=== PATIENT | male | born 1965 | race Caucasian/White ===

== ENCOUNTER 2019-11-20 09:02 | Emergency (ER) | payer MEDICARE ==
[~2019-11-20] VITALS: Ht 180.3 cm; Wt 90.6 kg
[~2019-11-20 09:02] MED LIST: CLIN-90 PO
[2019-11-20 09:40] LABS: BASOPHILS # (AUTO) 0.1 X10'3 (0-0.2); BASOPHILS % (AUTO) 0.5 % (0-1); EOSINOPHILS # (AUTO) 0.3 X10'3 (0-0.9); EOSINOPHILS % (AUTO) 2.8 % (0-6); HEMATOCRIT 48.4 % (42.0-52.0); HEMOGLOBIN 16.3 g/dl (14.0-17.9); LYMPHOCYTES # (AUTO) 3.1 X10'3 (1.1-4.8); LYMPHOCYTES % (AUTO) 28.5 % (21-51); MEAN CORPUSCULAR HEMOGLOBIN 29.5 PG (27.0-31.0); MEAN CORPUSCULAR HGB CONC 33.7 g/dL (33.0-36.5); MEAN CORPUSCULAR VOLUME 87.4 FL (78-98); MEAN PLATELET VOLUME 8.4 FL (7.4-10.4); MONOCYTES # (AUTO) 1.1 X10'3 (0-0.9); MONOCYTES % (AUTO) 10.4 % (2-12); NEUTROPHILS # (AUTO) 6.2 X10'3 (1.8-7.7); NEUTROPHILS % (AUTO) 57.8 % (42-75); PLATELET COUNT 351 X10'3 (140-440); RED BLOOD COUNT 5.53 X10'6 (4.70-6.10); RED CELL DISTRIBUTION WIDTH 13.8 % (11.5-14.5); WHITE BLOOD COUNT 10.7 X10'3 (4.5-11.0)
[2019-11-20 09:47] LABS: ALANINE AMINOTRANSFERASE 23 U/L (12-78); ALBUMIN 3.9 G/DL (3.4-5.0); ALKALINE PHOSPHATASE 92 IU/L (46-116); ANION GAP 9 (8-16); ASPARTATE AMINO TRANSFERASE 20 U/L (10-37); BILIRUBIN,TOTAL 0.4 MG/DL (0.1-1.0); BLOOD UREA NITROGEN 13 MG/DL (7-18); BUN/CREATININE RATIO 15.3 (5.4-32.0); CALCIUM 8.9 MG/DL (8.5-10.1); CHLORIDE 105 MMOL/L (99-107); CREATININE 0.85 MG/DL (0.60-1.10); GLUCOSE 92 MG/DL (70-104); SODIUM 140 MMOL/L (135-145); TOTAL PROTEIN 7.9 G/DL (6.4-8.2); eGFR > 90 ML/MIN
[2019-11-20] MEDS ORDERED: BACDS PO (10:30)
[2019-11-20 10:36] VITALS: BP 113/66
[2019-11-20 10:40] LABS: URINE AMPHETAMINE SCREEN NEGATIVE (Neg); URINE BARBITUATE SCREEN NEGATIVE (Neg); URINE BENZODIAZEPINES SCREEN NEGATIVE (Neg); URINE CANNABINOID SCREEN NEGATIVE (Neg); URINE COCAINE SCREEN NEGATIVE (Neg); URINE METHADONE SCREEN NEGATIVE (Neg); URINE OPIATE SCREEN NEGATIVE (Neg); URINE PHENCYCLIDINE SCREEN NEGATIVE (Neg)
[2019-11-20 10:41] LABS: CLARITY,URINE CLEAR (Clear); COLOR,URINE YELLOW (Yellow); GLUCOSE, URINE NEGATIVE (Neg); KETONES,URINE NEGATIVE (Neg); LEUKOCYTE ESTERASE ,URINE NEGATIVE (Neg); NITRITES, URINE NEGATIVE (Neg); OCCULT BLOOD,URINE NEGATIVE (Neg); PH,URINE 6.5 (4.8-8.0); PROTEIN,URINE NEGATIVE (Neg); UROBILINOGEN,URINE 0.2 E.U/dL (0.2-1.0)
[2019-11-20 10:44] LABS: UA COLLECTION TYPE CLN CATCH MIDSTREAM
== END 2019-11-20 10:41 | disposition home or self-care (01) ==
LOC: ER 09:03
DX: N49.2 Inflammatory disorders of scrotum (principal); Z56.0 Unemployment, unspecified; Z86.14 Personal history of Methicillin resistant Staphylococcus aureus infection
CPT/HCPCS: 36415; 76870; 80053; 80305; 81003; 85025; 99284

== ENCOUNTER 2024-09-06 14:31 | Emergency (ER) | payer BC, MEDICARE ==
[~2024-09-06] VITALS: Ht 180.3 cm; Wt 84.1 kg
[~2024-09-06 14:31] MED LIST changes: -CLIN-90 PO; +CLIN-97 PO
[2024-09-06 14:37] VITALS: BP 128/92; PULSE 114; TEMP 97.6; O2SAT 98
[2024-09-06] MEDS: LIDOcaine 1% 30ml preserv. free vial SQ STA (16:15)
[2024-09-06] MEDS: CefTRIAXone 1000mg IM Kit (w/lidocaine diluent) IM STA (16:21)
[2024-09-06] MEDS ORDERED: DOXY100C43 PO (18:06)
[2024-09-06] MEDS ORDERED: IBUP-1984 PO (18:06)
[2024-09-06 18:30] VITALS: RESP 18
== END 2024-09-06 18:32 | disposition home or self-care (01) ==
LOC: ER 14:31
DX: S50.362A Insect bite (nonvenomous) of left elbow, initial encounter (principal); Z56.0 Unemployment, unspecified; Z79.1 Long term (current) use of non-steroidal anti-inflammatories (NSAID); W57.XXXA Bitten or stung by nonvenomous insect and other nonvenomous arthropods, initial encounter; Y93.89 Activity, other specified; Y92.89 Other specified places as the place of occurrence of the external cause; Y99.8 Other external cause status
CPT/HCPCS: 10060; 96372; 99283; A6266; J0696; A6449

== ENCOUNTER 2024-09-08 16:16 | Emergency (ER) | payer BC ==
[~2024-09-08] VITALS: Ht 180.3 cm; Wt 84.1 kg
[~2024-09-08 16:16] MED LIST changes: +DOXY100C43 PO; +IBUP-1984 PO
[2024-09-08 16:27] VITALS: BP 126/77; PULSE 102; RESP 14; TEMP 98.2; O2SAT 98
[2024-09-08] MEDS: bacitracin 15gm ointment TP ONE (18:01)
[2024-09-08] MEDS: TETanus/Pertussis (Acell)/Diphther VAC/PF (Tdap-Adult) 0.5ml syringe IMVAC ONE (18:02)
== END 2024-09-08 18:13 | disposition home or self-care (01) ==
LOC: ER 16:16
DX: L02.414 Cutaneous abscess of left upper limb (principal); Z79.1 Long term (current) use of non-steroidal anti-inflammatories (NSAID); Z56.0 Unemployment, unspecified
CPT/HCPCS: 90471; 90715; 99283; A6258

== ENCOUNTER 2025-01-09 09:26 | Day surgery (SDC) | payer BC ==
[2025-01-05 09:03] LABS: BASOPHILS # (AUTO) 0.1 X10'3 (0-0.2); BASOPHILS % (AUTO) 1.1 % (0-1); EOSINOPHILS # (AUTO) 0.3 X10'3 (0-0.9); EOSINOPHILS % (AUTO) 4.1 % (0-6); HEMATOCRIT 50.5 % (42.0-52.0); HEMOGLOBIN 16.8 g/dl (14.0-17.9); LYMPHOCYTES # (AUTO) 2.1 X10'3 (1.1-4.8); LYMPHOCYTES % (AUTO) 28.2 % (21-51); MEAN CORPUSCULAR HEMOGLOBIN 29.8 PG (27.0-31.0); MEAN CORPUSCULAR HGB CONC 33.2 g/dL (33.0-36.5); MEAN CORPUSCULAR VOLUME 89.5 FL (78-98); MEAN PLATELET VOLUME 8.2 FL (7.4-10.4); MONOCYTES # (AUTO) 0.6 X10'3 (0-0.9); MONOCYTES % (AUTO) 8.7 % (2-12); NEUTROPHILS # (AUTO) 4.2 X10'3 (1.8-7.7); NEUTROPHILS % (AUTO) 57.9 % (42-75); PLATELET COUNT 311 X10'3 (140-440); RED BLOOD COUNT 5.64 X10'6 (4.70-6.10); RED CELL DISTRIBUTION WIDTH 13.9 % (11.5-14.5); WHITE BLOOD COUNT 7.3 X10'3 (4.5-11.0)
[2025-01-05 09:19] LABS: ALBUMIN 3.4 G/DL (3.4-5.0); ANION GAP 8 (8-16); APTT 26 SECONDS (22-32); BLOOD UREA NITROGEN 17 MG/DL (7-18); BUN/CREATININE RATIO 18.5 (10.0-20.0); CALCIUM 8.7 MG/DL (8.5-10.1); CHLORIDE 105 MMOL/L (99-107); CHOL/HDL RATIO 4.6 (0.00-4.99); CHOLESTEROL 208 MG/DL (0-200); CREATININE 0.92 MG/DL (0.60-1.10); GLUCOSE 157 MG/DL (70-104); HDL CHOLESTEROL 45 MG/DL (35-60); LDL CHOLESTEROL 131 MG/DL (50-100); PROTHROMBIN TIME 10.1 SECONDS (9.0-12.0); SODIUM 140 MMOL/L (135-145); TOTAL CARBON DIOXIDE 26.9 MMOL/L (24-32); TRIGLYCERIDES 262 MG/DL (20-135); eGFR 84 ML/MIN
[2025-01-05 09:20] LABS: POTASSIUM 4.4 MMOL/L (3.5-5.1)
[2025-01-09] VITALS (8 sets, daily range): BP systolic 110–133; BP diastolic 68–92; PULSE 85–99; RESP 15–20; TEMP 98.4; O2SAT 92–94
[~2025-01-09] VITALS: Ht 180.3 cm; Wt 90.4 kg
[~2025-01-09 09:26] MED LIST changes: -DOXY100C43 PO; -IBUP-1984 PO
[2025-01-09] MEDS ORDERED: ALBU2.5V10 (09:46)
[2025-01-09] MEDS ORDERED: EMTR1TAB18 PO (09:46)
[2025-01-09] MEDS: diphenhydrAMINE 25mg capsule PO PRN (10:46)
[2025-01-09] MEDS: LORazepam 0.5 MG tablet PO PRN (10:46)
[2025-01-09] MEDS: normal saline 1,000 ML IV SCH (10:47)
[2025-01-09] MEDS ORDERED: midazolam 1 mg/ML 2ml injection ONE (11:42)
[2025-01-09] MEDS ORDERED: LIDOcaine 1% (10mg/ml) 2ml vial ONE (11:42)
[2025-01-09] MEDS ORDERED: fentaNYL/PF 50MCG/1 ML 2ML syringe ONE (11:43)
[2025-01-09] MEDS ORDERED: iohexol 350MG/ML 100ml bottle IV ONE (11:43)
[2025-01-09 14:17] LABS: ISTAT HGB MIX 15.3 g/dl (14.0-17.9); ISTAT Hct MIX 45 %PCV (42-52); ISTAT O2 SATURATION MIX VENOUS 58 % (60-80); ISTAT SOURCE VEN
== END 2025-01-09 15:30 | disposition home or self-care (01) ==
LOC: SSTAY O 09:26
PROVIDERS: ATTEND Student in an Organized Health Care Education/Training Program
DX: I27.20 Pulmonary hypertension, unspecified (principal); E78.5 Hyperlipidemia, unspecified; J44.9 Chronic obstructive pulmonary disease, unspecified; B20 Human immunodeficiency virus [HIV] disease; F31.9 Bipolar disorder, unspecified; F41.8 Other specified anxiety disorders; I27.81 Cor pulmonale (chronic); Z79.899 Other long term (current) drug therapy; Z98.890 Other specified postprocedural states
CPT/HCPCS: 36415; 80048; 80061; 82803; 85014; 85025; 85610; 85730; 93005; 93451; 99152; J1644; J2003; J2250; J3010; J7030; Q0163; Q9967; A4615; A6258; C1751; C1894

== ENCOUNTER 2025-02-24 14:52 | Emergency (ER) | payer BC ==
[~2025-02-24] VITALS: Ht 180.3 cm; Wt 87.8 kg
[~2025-02-24 14:52] MED LIST changes: +ALBU2.5V10; -CLIN-97 PO; +EMTR1TAB18 PO
[2025-02-24] MEDS ORDERED: FURO20TA4 PO (15:06)
--- NOTE | 2025-02-24 15:35 | RADIOLOGY REPORT ---
Exam: DI ABDOMEN,SINGLE VIEW(KUB) History: constipation Comparison: None Technique: A portable supine AP radiograph of the abdomen is obtained. Findings: Nonobstructive bowel gas pattern noted. There is no definite evidence for pneumoperitoneum. No abnor mal calcifications noted. Impression: 1. Nonspecific gas pattern. Mild fecal stasis
[2025-02-24 17:30] LABS: BASOPHILS % (AUTO) 0.4 % (0-1); EOSINOPHILS # (AUTO) 0.2 X10'3 (0-0.9); EOSINOPHILS % (AUTO) 2.3 % (0-6); HEMATOCRIT 49.2 % (42.0-52.0); HEMOGLOBIN 16.6 g/dl (14.0-17.9); LYMPHOCYTES # (AUTO) 2.1 X10'3 (1.1-4.8); LYMPHOCYTES % (AUTO) 24.7 % (21-51); MEAN CORPUSCULAR HEMOGLOBIN 29.3 PG (27.0-31.0); MEAN CORPUSCULAR HGB CONC 33.6 g/dL (33.0-36.5); MEAN CORPUSCULAR VOLUME 87.2 FL (78-98); MEAN PLATELET VOLUME 8.1 FL (7.4-10.4); MONOCYTES # (AUTO) 0.9 X10'3 (0-0.9); MONOCYTES % (AUTO) 10.7 % (2-12); NEUTROPHILS # (AUTO) 5.3 X10'3 (1.8-7.7); NEUTROPHILS % (AUTO) 61.9 % (42-75); PLATELET COUNT 359 X10'3 (140-440); RED BLOOD COUNT 5.65 X10'6 (4.70-6.10); RED CELL DISTRIBUTION WIDTH 13.8 % (11.5-14.5); WHITE BLOOD COUNT 8.5 X10'3 (4.5-11.0)
[2025-02-24 17:45] LABS: ALANINE AMINOTRANSFERASE 41 U/L (12-78); ALBUMIN 3.6 G/DL (3.4-5.0); ALBUMIN/GLOBULIN RATIO 0.8 (1.1-1.5); ALKALINE PHOSPHATASE 124 IU/L (46-116); ANION GAP 6 (8-16); ASPARTATE AMINO TRANSFERASE 23 U/L (10-37); BILIRUBIN,TOTAL 0.3 MG/DL (0.1-1.0); BLOOD UREA NITROGEN 15 MG/DL (7-18); BUN/CREATININE RATIO 14.3 (10.0-20.0); CALCIUM 8.9 MG/DL (8.5-10.1); CHLORIDE 104 MMOL/L (99-107); CREATININE 1.05 MG/DL (0.60-1.10); GLUCOSE 120 MG/DL (70-104); LIPASE 25 U/L (16-77); SODIUM 141 MMOL/L (135-145); TOTAL CARBON DIOXIDE 31.5 MMOL/L (24-32); TOTAL PROTEIN 8.2 G/DL (6.4-8.2); eCRCL 81 ML/MIN; eGFR 72 ML/MIN
[2025-02-24] MEDS ORDERED: DOCU-148 PO (20:10)
[2025-02-24] MEDS ORDERED: SODI354S PO (20:10)
--- NOTE | 2025-02-24 20:12 | Physician Documentation ---
History of Present Illness ~ Chief Complaint: Urinary Retention Stated Complaint: CP, SOB W/ HX Time Seen by MD: 19:02 Primary Medical Doctor: May Jensen Mode of Arrival: Ambulatory HPI 59-year-old male reports a chief complaint of a constipation. Patient states he has been on Lasix due to pulmonary hypertension and states that he is placed on Lasix. Patient states that he has a had a bowel movement in a week. Denies rectal pain. Patient also states he has been difficulty voiding but he is able to void. Denies nausea vomiting diarrhea. No other complaints at this time Medication Reconciliation Allergies: Coded Allergies: No Known Allergies (Unverified , 09/06/24) Scheduled Albuterol Sulfate (Albuterol Sulfate), 1 q4hrs , (Reported) Emtricitabine/Tenofov Alafenam (Descovy 200-25 mg Tablet), 1 TAB PO DAILY, (Reported) Furosemide (Furosemide), 1 TAB PO BID, (Reported) Past Medical History Past Medical History: MRSA Abscess Past Surgical History: noncontributory Drug Use: none Lives with: Family Lives In: Home Occupation: unemployed Physical Exam Vital Signs: Temperature: 96.4, Source: Temporal, Heart Rate: 109, Respiratory Rate: 16, BP: 131/84, Pulse Oximetry: 92, Weight: 87.800 Oxygen Flow Rate: 0 Physical Exam General: Well developed, well nourished, no distress. HEENT: Atraumatic, normal conjunctiva, moist mucous membranes. Neck: Full range of motion, supple. Respiratory: Lungs clear, no respiratory distress. Chest: No accessory muscle use, nontender. Cardiovascular: Regular rate and rhythm. Gastrointestinal: Soft, nontender, nondistended. Bowel sounds present. Extremities: Normal range of motion, nontender, normal capillary refill, no deformity. Back: No midline tenderness, no CVA tenderness. Neurologic: Oriented x4. Distal gross motor and sensory intact all four extremities. Moves all 4 extremities spontaneously. Psychiatric: Normal mood and affect. Skin: Normal color, warm and dry. No edema, no ecchymosis Progress Results/Orders Results/Orders Orders - EDWIN ASTORGA Abdomen,Single View(Kub) (02/24/25 15:06) Completed Orders - EDWIN ASTORGA Abdomen,Single View(Kub) (02/24/25 15:06) Vital Signs 02/24/25 02/24/25 14:58 19:54 Temp 96.4 Pulse 109 Resp 16 16 B/P (MAP) 131/84 Pulse Ox 92 O2 Flow Rate 0 Laboratory Tests Test 02/24/25 17:14 White Blood Count 8.5 Red Blood Count 5.65 Hemoglobin 16.6 Hematocrit 49.2 Mean Corpuscular Volume 87.2 Mean Corpuscular Hemoglobin 29.3 Mean Corpuscular Hemoglobin Concent 33.6 Red Cell Distribution Width 13.8 Platelet Count 359 Mean Platelet Volume 8.1 Neutrophils (%) (Auto) 61.9 Lymphocytes (%) (Auto) 24.7 Monocytes (%) (Auto) 10.7 Eosinophils (%) (Auto) 2.3 Basophils (%) (Auto) 0.4 Neutrophils # (Auto) 5.3 Lymphocytes # (Auto) 2.1 Monocytes # (Auto) 0.9 Eosinophils # (Auto) 0.2 Basophils # (Auto) 0.0 CBC Comment Sodium Level 141 Potassium Level 4.0 Chloride Level 104 Carbon Dioxide Level 31.5 Anion Gap 6 L Blood Urea Nitrogen 15 Creatinine 1.05 Estimated GFR/1.73 m2 72 BUN/Creatinine Ratio 14.3 Glucose Level 120 H Calcium Level 8.9 Total Bilirubin 0.3 Aspartate Amino Transf (AST/SGOT) 23 Alanine Aminotransferase (ALT/SGPT) 41 Alkaline Phosphatase 124 H Total Protein 8.2 Albumin 3.6 Globulin 4.6 H Albumin/Globulin Ratio 0.8 L Lipase 25 Chemistry Comments Medical Decision Making Additional info obtained from: old records Findings After detailed discussion and joint medical decision-making, diagnostic and imaging results were discussed with the patient. At this time patient does appear to have constipation. Patient we will be given Suprep and Colace and advised to follow up with primary care. Patient did have a bladder scan and he had a full void and at this time there was no need for a Dale. ER precautions were given. Patient is advised to follow up with his creative services director terra. All patient questions answered to satisfaction Urinary Diff Dx:Considerations: Include: Bowel obstruction, Impaction, Urinary retention, Other (Constipation) Departure Disposition: HOME / SELF CARE / HOMELESS Impression: Primary Impression: Constipation Condition: Stable Discharge Instructions: Constipation, Adult, [id number] Referrals: NO PRIMARY CARE PROVIDER (PCP) Prescriptions Docusate Sodium (Colace) 100 Mg Capsule 1 CAP PO Q12H for 30 Days, #60 CAP 0 Refills Prov: EDWIN ASTORGA 02/24/25 Sodium,Potassium,&Mag Sulfates (Suprep Bowel Prep Kit) 17.5 Gram-3.13 Gram-1.6 Gram Soln.recon 1 EA PO UD, #1 KIT 0 Refills Take according to instructions on printed sheet Prov: EDWIN ASTORGA 02/24/25 Education Educated: Patient Educated regarding: diagnosis, treatment Signature Scribe Signature: none used Attestation: Scribed for Edwin Astorga by Edwin MCKEON . 02/24/25 20:10 EDWIN ASTORGA February 24, 2025 20:12
[2025-02-24 20:47] VITALS: BP 111/79; PULSE 93; RESP 16; TEMP 98.1; O2SAT 99
== END 2025-02-24 20:48 | disposition home or self-care (01) ==
LOC: ER 14:53
DX: K59.00 Constipation, unspecified (principal)
CPT/HCPCS: 36415; 74018; 80053; 83690; 85025; 99284